=== PATIENT | male | born 1965 | race Caucasian/White ===

== ENCOUNTER 2017-09-17 05:01 | Emergency (ER) | payer MEDICAID ==
[~2017-09-17] VITALS: Ht 180.3 cm; Wt 90.6 kg
[2017-09-17 05:07] VITALS: BP 119/84
[2017-09-17] MEDS ORDERED: IBUPROFEN 200 MG TABLET PO ONE (05:30)
[2017-09-17] MEDS ORDERED: IBUPROFEN 200 MG TABLET ONE (05:48)
== END 2017-09-17 06:50 | disposition home or self-care (01) ==
LOC: ED 06:30
DX: S60.021A Contusion of right index finger without damage to nail, initial encounter (principal); Z88.1 Allergy status to other antibiotic agents; F17.210 Nicotine dependence, cigarettes, uncomplicated; X50.1XXA Overexertion from prolonged static or awkward postures, initial encounter; Y93.89 Activity, other specified; Y99.8 Other external cause status; Y92.89 Other specified places as the place of occurrence of the external cause
CPT/HCPCS: 99284

== ENCOUNTER 2017-12-11 22:10 | Emergency (ER) | payer MEDICAID ==
[~2017-12-11] VITALS: Ht 180.3 cm; Wt 91.3 kg
[2017-12-11 22:12] VITALS: BP 128/88
== END 2017-12-11 23:45 | disposition home or self-care (01) ==
LOC: ED 23:20
DX: J11.1 Influenza due to unidentified influenza virus with other respiratory manifestations (principal); J40 Bronchitis, not specified as acute or chronic
CPT/HCPCS: 99281

== ENCOUNTER 2017-12-31 03:55 | Emergency (ER) | payer MEDICAID ==
[~2017-12-31] VITALS: Ht 180.3 cm; Wt 92.7 kg
[2017-12-31 03:56] VITALS: BP 137/83
[2017-12-31] MEDS ORDERED: ALBUTEROL/IPRATROPIUM 2.5MG/0.5MG, 3 ML NPPB SCH (05:00)
[2017-12-31 05:30] LABS: RAPID INFLUENZA A Negative (Negative); RAPID INFLUENZA B Negative (Negative)
== END 2017-12-31 05:42 | disposition home or self-care (01) ==
LOC: ED 05:12
DX: J20.8 Acute bronchitis due to other specified organisms (principal); B96.89 Other specified bacterial agents as the cause of diseases classified elsewhere; J45.909 Unspecified asthma, uncomplicated; F17.210 Nicotine dependence, cigarettes, uncomplicated
CPT/HCPCS: 71046; 87400; 99285

== ENCOUNTER 2018-08-08 04:31 | Emergency (ER) | payer MEDICAID ==
[~2018-08-08] VITALS: Ht 180.3 cm; Wt 92.9 kg
[2018-08-08 04:31] VITALS: BP 123/81
[2018-08-08] MEDS ORDERED: DIAZEPAM 5 MG TABLET ONE (06:36)
[2018-08-08] MEDS ORDERED: KETOROLAC 30 MG/1 ML ONE (06:36)
[2018-08-08] MEDS ORDERED: KETOROLAC 30 MG/1 ML IM ONE (07:00)
[2018-08-08] MEDS ORDERED: DIAZEPAM 5 MG TABLET PO ONE (07:00)
== END 2018-08-08 07:36 | disposition left against medical advice (07) ==
LOC: ED 05:00
DX: S29.012A Strain of muscle and tendon of back wall of thorax, initial encounter (principal); X58.XXXA Exposure to other specified factors, initial encounter; Y93.89 Activity, other specified; Y92.89 Other specified places as the place of occurrence of the external cause; Y99.8 Other external cause status
CPT/HCPCS: 99283